=== PATIENT | female | born 1995 | race Caucasian/White ===

== ENCOUNTER 2018-02-24 12:46 | Inpatient (IN) | payer MEDICAID ==
[2018-02-24] MEDS ORDERED: fentaNYL 100 MCG/2 ML SDV IVPUSH PRN (13:22)
[2018-02-24] MEDS ORDERED: Ondansetron 4 MG/2 ML SDV IV PRN (13:22)
[2018-02-24] MEDS ORDERED: Acetaminophen 325 MG Tab PO PRN (13:22)
[2018-02-24] MEDS ORDERED: Sodium Chloride 0.9% 10 ML Syringe FLUSH PRN (13:22)
[2018-02-24] MEDS ORDERED: Calcium Carbonate 500 MG Tab.Chew PO PRN (13:22)
[2018-02-24] MEDS ORDERED: ePHEDrine 50 MG/ML SDV IVPUSH ONE (13:27)
[2018-02-24] MEDS ORDERED: Lactated Ringers 1,000 ML IV ONE (13:27)
[2018-02-24] MEDS ORDERED: ePHEDrine 50 MG/ML SDV ONE (15:34)
[2018-02-24] MEDS ORDERED: Lactated Ringers 1,000 ML IV SCH (16:15)
--- NOTE | 2018-02-24 16:47 | ANES ---
DATE OF SERVICE: 02/24/2018 Edna is a 22-year-old female patient of Darling Alarcon. INDICATION: Edna is on our OB unit. I was requested today to consult her for labor epidural. Upon arrival, I discussed with her, her history, as well as reviewed her lab work and found no contraindication to epidural placement. I discussed with her risks and benefits of the procedure. She was okay to proceed and consent was received. TECHNIQUE: I had her seated at the edge of the bed. Betadine prep x3 to lumbar region. Sterile drape was placed. 1% lidocaine skin wheal as well as deep at the L3-L4 region. Due to positioning, I was unable to access loss of resistance, with frequent repositioning, and I continued that inability at the L3-4. I then proceeded to locate L4-5. 1% lidocaine skin wheal as well as deep, 17-gauge Tuohy was placed to loss of resistance. Negative CSF, negative heme, and negative paresthesia. I then inserted a catheter to 14 cm. Needle was removed. The drape was removed. Catheter was then secured to her back. Test dose was given, 3 mL of 1.5% lidocaine with 1:200,000 epinephrine. Negative sequelae to that. The catheter was then secured to her back, and I gave her a loading dose of 2 mL of 0.2% ropivacaine and began an infusion of that same 12 mL an hour. She tolerated the procedure quite well. Please refer to nurse's notes for vital signs and neuro status, which remained unchanged and within normal limits. She did start to receive some tingling and numbness in her feet prior to completion of the procedure. Again, she tolerated the procedure quite well. I reported her off to the nurse. Thank you for the consultation. Justino Weems CRNA /[id number]
[2018-02-24] MEDS ORDERED: Ropivacaine HCl/PF 200 ML ONE (16:48)
--- NOTE | 2018-02-24 17:22 | PCM.LDHP ---
L&D History of Present Illness - General Date of Service: 02/24/18 Admit Problem/Dx: Patient Status Order with Admit Dx/Problem 02/24/18 13:23 Patient Status [ADT] Routine Admission Diagnosis/Problem Admission Diagnosis/Problem - Related Data Allergies/Adverse Reactions: Allergies Allergy/AdvReac Type Severity Reaction Status Date / Time No Known Allergies Allergy Verified 08/11/15 10:51 Home Medications: Home Meds #103/Iron Fumarate/Fa [ ] 1 tab PO DAILY 08/11/15 [ History] Azithromycin [Zithromax] 250 mg PO DAILY 02/18/18 [History] FLUoxetine HCl [Prozac] 20 mg PO DAILY 02/18/18 [History] hydrOXYzine Pamoate [Vistaril] 50 - 100 mg PO BEDTIME 7 Days #14 cap 02/19/18 [ Rx] Past Medical History Respiratory History: Reports: Asthma [employer] History: Reports: , Other (See Below) Other OB/BYN History: abnormal pap in 2017 Musculoskeletal History: Reports: Other (See Below) Other Musculoskeletal History: arthritis brought brought by an allergic reaction. resolved after reaction cleared. Psychiatric History: Reports: Anxiety, Depression Endocrine/Metabolic History: Reports: Obesity/BMI 30+ Hematologic History: Reports: Anemia, Iron Deficiency Dermatologic History: Reports: Eczema - Infectious Disease History Infectious Disease History: Reports: Chicken Pox - Past Surgical History Endocrine Surgical History: Reports: None Social & Family History - Family History Family Medical History: Noncontributory HEENT: Reports: Impaired Vision Cardiac: Reports: Hypertension Respiratory: Reports: Asthma GI: Reports: Cholelithiasis, Pancreatitis, Other (See Below) Other GI Family History: motherhas stomach lining problems OBGYN: Reports: Neurological: Reports: Alzheimers Disease, Dementia Psychiatric: Reports: Bipolar, Depression, Schizophrenia, Suicide Attempt Hematologic: Reports: Anemia Dermatologic: Reports: Eczema Oncologic: Reports: Ovarian - Tobacco Use Smoking Status *Q: Never Smoker Second Hand Smoke Exposure: No - Caffeine Use Caffeine Use: Reports: Soda, Tea Other Caffeine Use: 1 ccup per day - Recreational Drug Use Recreational Drug Use: No H&P Review of Systems - Review of Systems: Review Of Systems: See Below General: Reports: No Symptoms HEENT: Reports: No Symptoms Pulmonary: Reports: No Symptoms Cardiovascular: Reports: No Symptoms Gastrointestinal: Reports: No Symptoms Genitourinary: Reports: No Symptoms Musculoskeletal: Reports: No Symptoms Skin: Reports: No Symptoms Psychiatric: Reports: No Symptoms Neurological: Reports: No Symptoms Hematologic/Lymphatic: Reports: No Symptoms Immunologic: Reports: No Symptoms L&D Exam - Exam Exam: See Below - Vital Signs Weight: 117.48 kg - OB Specific Contraction Duration (sec): 40-90 Contraction Frequency (min): 4-7 Contraction Intensity: Mild to Moderate Movement: Active Heart Tones: Present Heart Rate (FHR) Variability: Moderate (6-25 bmp) Presentation: Vertex - Allen Score Allen Score Cervix Position: Anterior Allen Score Consistency: Soft Allen Score Effacement: 51-70% Allen Score Dilation: 3-4 cm Allen Score 's Station: -2 Allen Score Total: 9 - Exam General: Alert, Oriented HEENT: PERRLA, Conjunctiva Clear, EACs Clear, EOMI, Hearing Intact, Mucosa Moist & [place], Nares Patent, Normal Nasal Septum, Posterior Pharynx Clear, TMs Clear Neck: Supple, Trachea Midline Lungs: Clear to Auscultation, Normal Respiratory Effort Cardiovascular: Regular Rate, Regular Rhythm GI/Abdominal Exam: Normal Bowel Sounds, Soft, Non-Tender, No Organomegaly, No Distention, No Abnormal Bruit, No Mass, Pelvis Stable Rectal Exam: Normal Exam, Normal Rectal Tone Genitourinary: Normal external exam, Normal bimanual exam, Normal speculum exam Back Exam: Normal Inspection, Full Range of Motion Extremities: Normal Inspection, Normal Range of Motion, Non-Tender, No Pedal Edema, Normal Capillary Refill Skin: Warm, Dry, Intact Neurological: Cranial Nerves Intact, Reflexes Equal Bilateral Psychiatric: Alert, Normal Affect, Normal Mood - Patient Data Lab Results Last 24 hrs: Laboratory Results - last 24 hr 02/24/18 02/24/18 02/24/18 Range/Units 12:53 12:53 13:19 WBC (4.5-11.0) K/uL RBC (3.30-5.50) M/uL Hgb (12.0-15.0) g/dL Hct (36.0-48.0) % MCV (80-98) fL MCH (27-31) pg MCHC (32-36) % Plt Count (150-400) K/uL Neut % (Auto) (36-66) % Lymph % (Auto) (24-44) % [place] % (Auto) (2-6) % Eos % (Auto) (2-4) % Baso % (Auto) (0-1) % Urine Color Yellow Urine Appearance Cloudy Urine pH 8.0 (4.5-8.0) Ur Specific [place] 1.015 (1.008-1.030) Urine Protein Negative (NEGATIVE) mg/dL Urine Glucose (UA) Normal (NEGATIVE) mg/dL Urine Ketones Negative (NEGATIVE) mg/dL Urine Occult Blood Large (NEGATIVE) Urine Nitrite Negative (NEGATIVE) Urine Bilirubin Negative (NEGATIVE) Urine Urobilinogen Normal (NORMAL) mg/dL Ur Leukocyte Esterase Large (NEGATIVE) Urine RBC 20-30 H (0-5) Urine WBC Semi-packed H (0-5) Ur Epithelial Cells Many Amorphous Sediment Not seen Urine Bacteria Moderate Urine Mucus Few Membrane Rupture Positive H (NEGATIVE) Urine Opiates Screen Negative (NEGATIVE) Ur Oxycodone Screen Negative (NEGATIVE) Urine Methadone Screen Negative (NEGATIVE) Ur Propoxyphene Screen Negative (NEGATIVE) Ur Barbiturates Screen Negative (NEGATIVE) Ur Tricyclics Screen Negative (NEGATIVE) Ur Phencyclidine Scrn Negative (NEGATIVE) Ur Amphetamine Screen Negative (NEGATIVE) U Methamphetamines Scrn Negative (NEGATIVE) Urine MDMA Screen Negative (NEGATIVE) U Benzodiazepines Scrn Negative (NEGATIVE) U Cocaine Metab Screen Negative (NEGATIVE) U Marijuana (THC) Screen Negative (NEGATIVE) 02/24/18 02/24/18 Range/Units 13:22 16:25 WBC 8.7 (4.5-11.0) K/uL RBC 3.74 (3.30-5.50) M/uL Hgb 10.3 L D (12.0-15.0) g/dL Hct 31.3 L (36.0-48.0) % MCV 84 (80-98) fL MCH 28 (27-31) pg MCHC 33 (32-36) % Plt Count 264 (150-400) K/uL Neut % (Auto) 69 H (36-66) % Lymph % (Auto) 22 L (24-44) % [place] % (Auto) 8 H (2-6) % Eos % (Auto) 1 L (2-4) % Baso % (Auto) 0 (0-1) % Urine Color Yellow Urine Appearance Clear Urine pH 8.0 (4.5-8.0) Ur Specific [place] 1.010 (1.008-1.030) Urine Protein Negative (NEGATIVE) mg/dL Urine Glucose (UA) Normal (NEGATIVE) mg/dL Urine Ketones Negative (NEGATIVE) mg/dL Urine Occult Blood Negative (NEGATIVE) Urine Nitrite Negative (NEGATIVE) Urine Bilirubin Negative (NEGATIVE) Urine Urobilinogen Normal (NORMAL) mg/dL Ur Leukocyte Esterase Negative (NEGATIVE) Urine RBC 0-5 (0-5) Urine WBC 0-5 (0-5) Ur Epithelial Cells Moderate Amorphous Sediment Not seen Urine Bacteria Not seen Urine Mucus Not seen Membrane Rupture (NEGATIVE) Urine Opiates Screen (NEGATIVE) Ur Oxycodone Screen (NEGATIVE) Urine Methadone Screen (NEGATIVE) Ur Propoxyphene Screen (NEGATIVE) Ur Barbiturates Screen (NEGATIVE) Ur Tricyclics Screen (NEGATIVE) Ur Phencyclidine Scrn (NEGATIVE) Ur Amphetamine Screen (NEGATIVE) U Methamphetamines Scrn (NEGATIVE) Urine MDMA Screen (NEGATIVE) U Benzodiazepines Scrn (NEGATIVE) U Cocaine Metab Screen (NEGATIVE) U Marijuana (THC) Screen (NEGATIVE) Result Diagrams: 02/24/18 13:22 - Problem List (1) SNOMED Code(s): 33247599 ICD Code: Z34.90 - ENCNTR FOR SUPRVSN OF NORMAL , UNSP, UNSP TRIMESTER Status: Acute Current Visit: Yes Qualifiers: Weeks of gestation: 38 weeks Qualified Code(s): Z3A.38 - 38 weeks gestation of (2) Spontaneous rupture of amniotic membranes SNOMED Code(s): 561931697 ICD Code: LSH2060 - Status: Acute Current Visit: Yes (3) Active labor at term SNOMED Code(s): 70663989 ICD Code: XDI0478 - Status: Acute Current Visit: Yes Problem List Initiated/Reviewed/Updated: Yes Orders Last 24hrs: Active Orders 24 hr Category Date Time Status Patient Status [ADT] Routine ADT 02/24/18 13:23 Active Ambulate [RC] PER UNIT ROUTINE Care 02/24/18 13:22 Active Communication Order [RC] ASDIRECTED Care 02/24/18 13:23 Active Heart Tones [RC] PER UNIT ROUTINE Care 02/24/18 13:23 Active Non Stress Test [RC] Click to Edit Care 02/24/18 13:23 Active Insert Urinary Catheter [OM.PC] ASDIRECTED Care 02/24/18 13:30 Ordered Local Anesthetic Infusion Pump [RC] ASDIRECTED Care 02/24/18 13:27 Active Notify Provider Vital Signs [RC] PRN Care 02/24/18 13:22 Active Notify Provider [RC] PRN Care 02/24/18 13:23 Active PCEA Epidural [RC] ASDIRECTED Care 02/24/18 13:27 Active PCEA Epidural [RC] ASDIRECTED Care 02/24/18 13:27 Active Up ad Ne [RC] ASDIRECTED Care 02/24/18 13:22 Active Urinary Catheter Assessment [RC] ASDIRECTED Care 02/24/18 13:27 Active Verify Patient Consent Obtain [RC] ASDIRECTED Care 02/24/18 13:27 Active Vital Signs [RC] PER UNIT ROUTINE Care 02/24/18 13:23 Active Regular Diet [DIET] Diet 02/24/18 Lunch Active AMNISURE RUPTURE MEMBRAN [BF] Routine Lab 02/24/18 13:19 Ordered DRUG SCREEN, URINE [URCHEM] Routine Lab 02/24/18 12:53 Ordered UA W/MICROSCOPIC [URIN] Routine Lab 02/24/18 12:53 Ordered UA W/MICROSCOPIC [URIN] Routine Lab 02/24/18 16:25 Ordered Acetaminophen [Tylenol] Med 02/24/18 13:22 Active 650 mg PO Q4H PRN Calcium Carbonate [Tums] Med 02/24/18 13:22 Active 1,000 mg PO Q2H PRN Lactated Ringers [Ringers, Lactated] 1,000 ml Med 02/24/18 16:15 Active IV ASDIRECTED Ondansetron [Zofran] Med 02/24/18 13:22 Active 4 mg IV Q4H PRN Oxytocin/Normal Saline [Pitocin in NS 20 Units/1,000 ML Med 02/24/18 13:30 Active ] 20 unit in 1,000 ml IV TITRATE Sodium Chloride 0.9% [Saline Flush] Med 02/24/18 13:22 Active 10 ml FLUSH ASDIRECTED PRN fentaNYL [Sublimaze] Med 02/24/18 13:22 Active 100 mcg IVPUSH Q1H PRN DVT/VTE Prophylaxis Reflex [OM.PC] Routine Oth 02/24/18 13:22 Ordered Epidural Catheter Management [OM.PC] Urgent Oth 02/24/18 13:27 Ordered Saline Lock Insert [OM.PC] Routine Oth 02/24/18 13:23 Ordered Resuscitation Status Routine Resus Stat 02/24/18 13:22 Ordered Medication Orders Acetaminophen (Tylenol) 650 mg PO Q4H PRN PRN Reason: Pain (Mild 1-3) and fever Calcium Carbonate/Glycine (Tums) 1,000 mg PO Q2H PRN PRN Reason: Indigestion Fentanyl (Sublimaze) 100 mcg IVPUSH Q1H PRN PRN Reason: Pain (moderate 4-6) Oxytocin/Sodium Chloride (Pitocin In Ns 20 Units/1,000 Ml) 20 unit in 1,000 mls @ 6 mls/hr IV TITRATE CYNTHIA; Protocol Last Titration: 02/24/18 17:12 Dose: 10 munits/min, 30 mls/hr Titration: 02/24/18 16:13 Dose: 8 munits/min, 24 mls/hr Titration: 02/24/18 15:43 Dose: 6 munits/min, 18 mls/hr Titration: 02/24/18 15:04 Dose: 4 munits/min, 12 mls/hr Admin: 02/24/18 14:11 Dose: 2 munits/min, 6 mls/hr Lactated Ringer's (Ringers, Lactated) 1,000 mls @ 125 mls/hr IV ASDIRECTED CYNTHIA Ondansetron HCl (Zofran) 4 mg IV Q4H PRN PRN Reason: Nausea/Vomiting Sodium Chloride (Saline Flush) 10 ml FLUSH ASDIRECTED PRN PRN Reason: Keep Vein Open Assessment/Plan Comment:: 02/24/2018 22 yo at 38 4/7 gestational weeks here with SROM at home around 1130 SVE-4/70/-2 Amnisure positive FHTs category one Contractions irregular Plan- Admit to labor and delivery Monitor for active labor Start Pitocin per protocol Monitor FHTs Up and about as patient desires Pain management per patient request Plan and anticipate a vaginal delivery
--- NOTE | 2018-02-24 17:24 | PCM.PNLD ---
Labor Progress Note - VS & Meds Active Medications: Current Medications Acetaminophen (Tylenol) 650 mg PO Q4H PRN PRN Reason: Pain (Mild 1-3) and fever Calcium Carbonate/Glycine (Tums) 1,000 mg PO Q2H PRN PRN Reason: Indigestion Fentanyl (Sublimaze) 100 mcg IVPUSH Q1H PRN PRN Reason: Pain (moderate 4-6) Oxytocin/Sodium Chloride (Pitocin In Ns 20 Units/1,000 Ml) 20 unit in 1,000 mls @ 6 mls/hr IV TITRATE CYNTHIA; Protocol Last Titration: 02/24/18 17:12 Dose: 10 munits/min, 30 mls/hr Lactated Ringer's (Ringers, Lactated) 1,000 mls @ 125 mls/hr IV ASDIRECTED CYNTHIA Ondansetron HCl (Zofran) 4 mg IV Q4H PRN PRN Reason: Nausea/Vomiting Sodium Chloride (Saline Flush) 10 ml FLUSH ASDIRECTED PRN PRN Reason: Keep Vein Open Discontinued Medications Ephedrine Sulfate (Ephedrine Sulfate) 5 mg IVPUSH ONETIME ONE Stop: 02/24/18 13:28 Ephedrine Sulfate (Ephedrine Sulfate) Confirm Administered Dose 50 mg .ROUTE .STK-MED ONE Stop: 02/24/18 15:35 Last Admin: 02/24/18 16:01 Dose: Not Given Lactated Ringer's (Ringers, Lactated) 1,000 mls @ 999 mls/hr IV ONETIME ONE Stop: 02/24/18 14:27 Last Infusion: 02/24/18 14:45 Dose: 999 mls/hr Ropivacaine (Naropin 0.2%) Confirm Administered Dose 200 mls @ as directed .ROUTE .STK-MED ONE Stop: 02/24/18 16:49 - Uterine Contractions Uterine Monitoring Mode: External [place] Contraction Frequency (min): 4-7 Contraction Duration (sec): 40-90 Contraction Intensity: Mild to Moderate Uterine Resting Tone: Soft - Monitoring Heart Rate (FHR) Variability: Moderate (6-25 bmp) - Vaginal Exam Dilation (cm): 4-5 Effacement (Percent): 80 Station: 0 Cervical Position: Anterior Sterile Vaginal Exam Performed By: Darling Alarcon - Labor Progress (Free Text) Labor Progress: 02/24/2018 Patient comfortable with epidural SVE-4-5/80/0--1 Forbag felt-AROM clear fluid FHTs category one Contractions more regular Plan- Continue to monitor labor Continue to monitor FHTs Continue Pitocin per protocol Epidural for pain management Plan and anticipate a vaginal delivery
[2018-02-24] MEDS ORDERED: Naloxone 0.4 MG/ML SDV IVPUSH PRN (18:47)
[2018-02-24] MEDS ORDERED: Ropivacaine 100 ML EPIDUR SCH (18:47)
[2018-02-24] MEDS ORDERED: ePHEDrine 50 MG/ML SDV IV PRN (18:47)
[2018-02-24] MEDS ORDERED: diphenhydrAMINE 50 MG/ML SDV IVPUSH PRN (18:47)
--- NOTE | 2018-02-24 19:12 | PCM.PNLD ---
Labor Progress Note - VS & Meds Vital Signs: Last Vital Signs Temp 36.4 C 02/24/18 16:05 Pulse 89 02/24/18 16:05 Resp 16 02/24/18 16:05 BP 108/79 02/24/18 16:05 Pulse Ox 98 02/24/18 16:05 Active Medications: Current Medications Acetaminophen (Tylenol) 650 mg PO Q4H PRN PRN Reason: Pain (Mild 1-3) and fever Calcium Carbonate/Glycine (Tums) 1,000 mg PO Q2H PRN PRN Reason: Indigestion Diphenhydramine HCl (Benadryl) 25 mg IVPUSH Q6H PRN PRN Reason: ITCHING Ephedrine Sulfate (Ephedrine Sulfate) 5 - 10 mg IV ASDIRECTED PRN PRN Reason: Systolic BP less than 100 Fentanyl (Sublimaze) 100 mcg IVPUSH Q1H PRN PRN Reason: Pain (moderate 4-6) Oxytocin/Sodium Chloride (Pitocin In Ns 20 Units/1,000 Ml) 20 unit in 1,000 mls @ 6 mls/hr IV TITRATE CYNTHIA; Protocol Last Titration: 02/24/18 18:02 Dose: 8 munits/min, 24 mls/hr Lactated Ringer's (Ringers, Lactated) 1,000 mls @ 125 mls/hr IV ASDIRECTED CYNTHIA Ropivacaine (Naropin 0.2%) 100 mls @ 0 mls/hr EPIDUR ASDIRECTED CYNTHIA; Protocol Naloxone HCl (Narcan) 0.1 mg IVPUSH Q5M PRN PRN Reason: IF RESP RATE LESS THAN 6 Ondansetron HCl (Zofran) 4 mg IV Q4H PRN PRN Reason: Nausea/Vomiting Sodium Chloride (Saline Flush) 10 ml FLUSH ASDIRECTED PRN PRN Reason: Keep Vein Open Discontinued Medications Ephedrine Sulfate (Ephedrine Sulfate) 5 mg IVPUSH ONETIME ONE Stop: 02/24/18 13:28 Ephedrine Sulfate (Ephedrine Sulfate) Confirm Administered Dose 50 mg .ROUTE .STK-MED ONE Stop: 02/24/18 15:35 Last Admin: 02/24/18 16:01 Dose: Not Given Lactated Ringer's (Ringers, Lactated) 1,000 mls @ 999 mls/hr IV ONETIME ONE Stop: 02/24/18 14:27 Last Infusion: 02/24/18 14:45 Dose: 999 mls/hr Ropivacaine (Naropin 0.2%) Confirm Administered Dose 200 mls @ as directed .ROUTE .STK-MED ONE Stop: 02/24/18 16:49 - Uterine Contractions Uterine Monitoring Mode: External [place] Contraction Frequency (min): 2-4 Contraction Duration (sec): 40-60 Contraction Intensity: Moderate Uterine Resting Tone: Hard - Monitoring Heart Rate (FHR) Variability: Moderate (6-25 bmp) - Vaginal Exam Dilation (cm): 10 Effacement (Percent): 90 Station: 0 Cervical Position: Anterior Sterile Vaginal Exam Performed By: Darling Alarcon - Labor Progress (Free Text) Labor Progress: 02/24/2018 Patient progressing nicely SVE-10/100/0 FHTs occasional variable/early Contractions regular Pain controlled with an epidural Plan- Labor down due to laceration at last delivery Monitor FHTs Plan and anticipate for a vaginal delivery
[2018-02-24] MEDS ORDERED: Lanolin 100% Cream 40 GM Tube TOP PRN (19:58)
[2018-02-24] MEDS ORDERED: Acetaminophen 325 MG Tab, 50 Tab Bulk Bottle PO PRN (19:58)
[2018-02-24] MEDS ORDERED: Docusate Sodium 100 MG Cap PO PRN (19:58)
[2018-02-24] MEDS ORDERED: Ibuprofen 200 MG Tab, 24 Tab Bulk Bottle PO PRN (19:58)
[2018-02-24] MEDS ORDERED: Witch Hazel Medicated Pads 100/Jar TOP PRN (19:58)
--- NOTE | 2018-02-24 20:13 | PCM.DEL ---
L & D Note - General Info Date of Service: 02/24/18 Mother's Due Date: 03/06/18 - Delivery Note Labor: Augmented by Oxytocin Delivery Outcome: Livebirth Infant Delivery Method: Spontaneous Vaginal Delivery-Single Delivery Mode: Spontaneous Presentation: Vertex Nuchal Cord: None Anesthesia Type: Epidural Amniotic Fluid Description: Clear Episiotomy Type: None Laceration: None Placenta: Intact, Spontaneous Cord: 3 Vessels Estimated Blood Loss: 250 : Bulb Syringe, Stimulated, Warmed, [place] Used Score 1 min: 9 Score 5 min: 9 Second Stage Interventions: Reports: Encouragement Given, Pushing Effectively Delivery Comments (Free Text/Narrative):: 02/24/2018 22 yo at 38 4/7 gestational weeks delivered a viable male infant at 1932 on 02/24/2018 without complications in [place] position with compound left arm. APGARS-9/9, weight 7lbs 10oz, length-19.9 inches, infant placed on mothers abdomen, delayed cord clamping done, cord double clamped, father of cut the cord, then bulb suctioned, stimulated, dried, and warmed before pinking in color and crying vigorously. Three vessel cord, did have cord around arm near axilla times one at delivery. Placenta spontaneous and intact. No lacerations noted of vagina, cervix, labia, rectum, or perineum. EBL-250ml. Mother stable in labor and delivery room and stable skin to skin. - General Info Date of Service: 02/24/18 Functional Status: Reports: Pain Controlled - Review of Systems General: Reports: No Symptoms HEENT: Reports: No Symptoms Pulmonary: Reports: No Symptoms Cardiovascular: Reports: No Symptoms Gastrointestinal: Reports: No Symptoms Genitourinary: Reports: No Symptoms Musculoskeletal: Reports: No Symptoms Skin: Reports: No Symptoms Neurological: Reports: No Symptoms Psychiatric: Reports: No Symptoms - Patient Data Vitals - Most Recent: Last Vital Signs Temp 36.4 C 02/24/18 16:05 Pulse 72 02/24/18 18:30 Resp 16 02/24/18 18:30 BP 125/65 02/24/18 18:30 Pulse Ox 96 02/24/18 18:30 Weight - Most Recent: 117.48 kg Lab Results Last 24 Hours: Laboratory Results - last 24 hr 02/24/18 02/24/1818 Range/Units 12:53 12:53 13:19 WBC (4.5-11.0) K/uL RBC (3.30-5.50) M/uL Hgb (12.0-15.0) g/dL Hct (36.0-48.0) % MCV (80-98) fL MCH (27-31) pg MCHC (32-36) % Plt Count (150-400) K/uL Neut % (Auto) (36-66) % Lymph % (Auto) (24-44) % [place] % (Auto) (2-6) % Eos % (Auto) (2-4) % Baso % (Auto) (0-1) % Urine Color Yellow Urine Appearance Cloudy Urine pH 8.0 (4.5-8.0) Ur Specific [place] 1.015 (1.008-1.030) Urine Protein Negative (NEGATIVE) mg/dL Urine Glucose (UA) Normal (NEGATIVE) mg/dL Urine Ketones Negative (NEGATIVE) mg/dL Urine Occult Blood Large (NEGATIVE) Urine Nitrite Negative (NEGATIVE) Urine Bilirubin Negative (NEGATIVE) Urine Urobilinogen Normal (NORMAL) mg/dL Ur Leukocyte Esterase Large (NEGATIVE) Urine RBC 20-30 H (0-5) Urine WBC Semi-packed H (0-5) Ur Epithelial Cells Many Amorphous Sediment Not seen Urine Bacteria Moderate Urine Mucus Few Membrane Rupture Positive H (NEGATIVE) Urine Opiates Screen Negative (NEGATIVE) Ur Oxycodone Screen Negative (NEGATIVE) Urine Methadone Screen Negative (NEGATIVE) Ur Propoxyphene Screen Negative (NEGATIVE) Ur Barbiturates Screen Negative (NEGATIVE) Ur Tricyclics Screen Negative (NEGATIVE) Ur Phencyclidine Scrn Negative (NEGATIVE) Ur Amphetamine Screen Negative (NEGATIVE) U Methamphetamines Scrn Negative (NEGATIVE) Urine MDMA Screen Negative (NEGATIVE) U Benzodiazepines Scrn Negative (NEGATIVE) U Cocaine Metab Screen Negative (NEGATIVE) U Marijuana (THC) Screen Negative (NEGATIVE) 02/24/18 02/24/18 Range/Units 13:22 16:25 WBC 8.7 (4.5-11.0) K/uL RBC 3.74 (3.30-5.50) M/uL Hgb 10.3 L D (12.0-15.0) g/dL Hct 31.3 L (36.0-48.0) % MCV 84 (80-98) fL MCH 28 (27-31) pg MCHC 33 (32-36) % Plt Count 264 (150-400) K/uL Neut % (Auto) 69 H (36-66) % Lymph % (Auto) 22 L (24-44) % [place] % (Auto) 8 H (2-6) % Eos % (Auto) 1 L (2-4) % Baso % (Auto) 0 (0-1) % Urine Color Yellow Urine Appearance Clear Urine pH 8.0 (4.5-8.0) Ur Specific [place] 1.010 (1.008-1.030) Urine Protein Negative (NEGATIVE) mg/dL Urine Glucose (UA) Normal (NEGATIVE) mg/dL Urine Ketones Negative (NEGATIVE) mg/dL Urine Occult Blood Negative (NEGATIVE) Urine Nitrite Negative (NEGATIVE) Urine Bilirubin Negative (NEGATIVE) Urine Urobilinogen Normal (NORMAL) mg/dL Ur Leukocyte Esterase Negative (NEGATIVE) Urine RBC 0-5 (0-5) Urine WBC 0-5 (0-5) Ur Epithelial Cells Moderate Amorphous Sediment Not seen Urine Bacteria Not seen Urine Mucus Not seen Membrane Rupture (NEGATIVE) Urine Opiates Screen (NEGATIVE) Ur Oxycodone Screen (NEGATIVE) Urine Methadone Screen (NEGATIVE) Ur Propoxyphene Screen (NEGATIVE) Ur Barbiturates Screen (NEGATIVE) Ur Tricyclics Screen (NEGATIVE) Ur Phencyclidine Scrn (NEGATIVE) Ur Amphetamine Screen (NEGATIVE) U Methamphetamines Scrn (NEGATIVE) Urine MDMA Screen (NEGATIVE) U Benzodiazepines Scrn (NEGATIVE) U Cocaine Metab Screen (NEGATIVE) U Marijuana (THC) Screen (NEGATIVE) Med Orders - Current: Current Medications Acetaminophen (Tylenol) 650 mg PO Q4H PRN PRN Reason: Pain (Mild 1-3) and fever Acetaminophen (Tylenol Bulk Bottle) 325 mg PO Q4H PRN PRN Reason: Pain Calcium Carbonate/Glycine (Tums) 1,000 mg PO Q2H PRN PRN Reason: Indigestion Diphenhydramine HCl (Benadryl) 25 mg IVPUSH Q6H PRN PRN Reason: ITCHING Docusate Sodium (Colace) 100 mg PO BID PRN PRN Reason: Constipation Emollient Ointment (Lansinoh Hpa) 1 gm TOP ASDIRECTED PRN PRN Reason: Sore Nipples Ephedrine Sulfate (Ephedrine Sulfate) 5 - 10 mg IV ASDIRECTED PRN PRN Reason: Systolic BP less than 100 Fentanyl (Sublimaze) 100 mcg IVPUSH Q1H PRN PRN Reason: Pain (moderate 4-6) Oxytocin/Sodium Chloride (Pitocin In Ns 20 Units/1,000 Ml) 20 unit in 1,000 mls @ 6 mls/hr IV TITRATE CYNTHIA; Protocol Last Titration: 02/24/18 18:02 Dose: 8 munits/min, 24 mls/hr Lactated Ringer's (Ringers, Lactated) 1,000 mls @ 125 mls/hr IV ASDIRECTED CYNTHIA Ropivacaine (Naropin 0.2%) 100 mls @ 0 mls/hr EPIDUR ASDIRECTED CYNTHIA; Protocol Ibuprofen (Motrin Bulk Bottle) 600 mg PO Q6H PRN PRN Reason: Pain Naloxone HCl (Narcan) 0.1 mg IVPUSH Q5M PRN PRN Reason: IF RESP RATE LESS THAN 6 Ondansetron HCl (Zofran) 4 mg IV Q4H PRN PRN Reason: Nausea/Vomiting Sodium Chloride (Saline Flush) 10 ml FLUSH ASDIRECTED PRN PRN Reason: Keep Vein Open Witch Tonya (Tucks) 1 pad TOP ASDIRECTED PRN PRN Reason: Hemorrhoids Discontinued Medications Ephedrine Sulfate (Ephedrine Sulfate) 5 mg IVPUSH ONETIME ONE Stop: 02/24/18 13:28 Ephedrine Sulfate (Ephedrine Sulfate) Confirm Administered Dose 50 mg .ROUTE .STK-MED ONE Stop: 02/24/18 15:35 Last Admin: 02/24/18 16:01 Dose: Not Given Lactated Ringer's (Ringers, Lactated) 1,000 mls @ 999 mls/hr IV ONETIME ONE Stop: 02/24/18 14:27 Last Infusion: 02/24/18 14:45 Dose: 999 mls/hr Ropivacaine (Naropin 0.2%) Confirm Administered Dose 200 mls @ as directed .ROUTE .STK-MED ONE Stop: 02/24/18 16:49 Oxytocin/Sodium Chloride (Pitocin In Ns 20 Units/1,000 Ml) 20 unit in 1,000 mls @ 2,997 mls/hr IV ONETIME ONE; Protocol Stop: 02/24/18 19:32 - Exam General: Alert, Oriented HEENT: Pupils Equal, Pupils Reactive, EOMI, Mucous Membr. Moist/[place] Neck: Supple Lungs: Clear to Auscultation, Normal Respiratory Effort Cardiovascular: Regular Rate, Regular Rhythm GI/Abdominal Exam: Normal Bowel Sounds, Soft, Non-Tender, No Organomegaly, No Distention, No Abnormal Bruit, No Mass, Pelvis Stable (Female) Exam: Normal External Exam, Normal Speculum Exam, Normal Bimanual Exam, Enlarged Uterus, Vaginal Bleeding Back Exam: Normal Inspection, Full Range of Motion Extremities: Normal Inspection, Normal Range of Motion, Non-Tender, No Pedal Edema, Normal Capillary Refill Skin: Warm, Dry, Intact Neurological: No New Focal Deficit Psy/Mental Status: Alert, Normal Affect, Normal Mood - Problem List & Annotations (1) SNOMED Code(s): 62915450 Code(s): Z34.90 - ENCNTR FOR SUPRVSN OF NORMAL , UNSP, UNSP TRIMESTER Status: Acute Current Visit: Yes Qualifiers: Weeks of gestation: 38 weeks Qualified Code(s): Z3A.38 - 38 weeks gestation of (2) Spontaneous rupture of amniotic membranes SNOMED Code(s): 151449441 Code(s): GGY2862 - Status: Acute Current Visit: Yes (3) Active labor at term SNOMED Code(s): 49252701 Code(s): UJK8444 - Status: Acute Current Visit: Yes - Problem List Review Problem List Initiated/Reviewed/Updated: Yes - My Orders Last 24 Hours: My Active Orders 02/24/18 12:53 DRUG SCREEN, URINE [URCHEM] Routine UA W/MICROSCOPIC [URIN] Routine 02/24/18 13:19 AMNISURE RUPTURE MEMBRAN [BF] Routine 02/24/18 13:22 Ambulate [RC] PER UNIT ROUTINE Notify Provider Vital Signs [RC] PRN Up ad Ne [RC] ASDIRECTED Acetaminophen [Tylenol] 650 mg PO Q4H PRN Calcium Carbonate [Tums] 1,000 mg PO Q2H PRN Ondansetron [Zofran] 4 mg IV Q4H PRN Sodium Chloride 0.9% [Saline Flush] 10 ml FLUSH ASDIRECTED PRN fentaNYL [Sublimaze] 100 mcg IVPUSH Q1H PRN DVT/VTE Prophylaxis Reflex [OM.PC] Routine Resuscitation Status Routine 02/24/18 13:23 Patient Status [ADT] Routine Communication Order [RC] ASDIRECTED Heart Tones [RC] PER UNIT ROUTINE Non Stress Test [RC] Click to Edit Notify Provider [RC] PRN Vital Signs [RC] PER UNIT ROUTINE Saline Lock Insert [OM.PC] Routine 02/24/18 13:27 Local Anesthetic Infusion Pump [RC] ASDIRECTED PCEA Epidural [RC] ASDIRECTED PCEA Epidural [RC] ASDIRECTED Urinary Catheter Assessment [RC] ASDIRECTED Verify Patient Consent Obtain [RC] ASDIRECTED Epidural Catheter Management [OM.PC] Urgent 02/24/18 13:30 Insert Urinary Catheter [OM.PC] ASDIRECTED Oxytocin/Normal Saline [Pitocin in NS 20 Units/1,000 ML] 20 unit in 1,000 ml IV TITRATE 02/24/18 16:15 Lactated Ringers [Ringers, Lactated] 1,000 ml IV ASDIRECTED 02/24/18 16:25 UA W/MICROSCOPIC [URIN] Routine 02/24/18 18:47 Naloxone [Narcan] 0.1 mg IVPUSH Q5M PRN Ropivacaine [Naropin 0.2%] 100 ml EPIDUR ASDIRECTED diphenhydrAMINE [Benadryl] 25 mg IVPUSH Q6H PRN ePHEDrine [ePHEDrine Sulfate] 5 - 10 mg IV ASDIRECTED PRN 02/24/18 19:58 Patient Status [ADT] Routine Vital Signs [RC] PFP Acetaminophen [Tylenol Bulk Bottle] 325 mg PO Q4H PRN Docusate Sodium [Colace] 100 mg PO BID PRN Ibuprofen [Motrin Bulk Bottle] 600 mg PO Q6H PRN Lanolin [Lansinoh HPA] 1 gm TOP ASDIRECTED PRN Witch Tonya [Tucks] 1 pad TOP ASDIRECTED PRN Assess Lochia [WOMSER] Per Unit Routine Assess Uterine Involution [WOMSER] Per Unit Routine Perineal Care [OM.PC] Per Unit Routine 02/24/18 Lunch Regular Diet [DIET] 02/25/18 06:00 CBC WITH AUTO DIFF [HEME] Routine - Assessment Assessment:: 02/24/2018 22 yo G2 now P2 at 38 4/7 gestational weeks without complications Labs-A positive, GBS negative, RPR nonreactive, Hep B neg, Hep C neg, HIV neg, Rubella [id number] - Plan Plan:: 02/24/2018 22 yo at 38 4/7 gestational weeks here with SROM at home around 1130 SVE-/-2 Amnisure positive FHTs category one Contractions irregular Plan- Admit to labor and delivery Monitor for active labor Start Pitocin per protocol Monitor FHTs Up and about as patient desires Pain management per patient request Plan and anticipate a vaginal delivery 02/24/2018 Routine care Encourage and support Plan discharge in 24-48 hours
[2018-02-25] MEDS ORDERED: Acetaminophen 325 MG Tab, 50 Tab Bulk Bottle PO PRN (07:14)
--- NOTE | 2018-02-25 08:23 | PCM.PNPP ---
- General Info Date of Service: 02/25/18 ( day one) Functional Status: Reports: Pain Controlled - Review of Systems General: Reports: No Symptoms HEENT: Reports: No Symptoms Pulmonary: Reports: No Symptoms Cardiovascular: Reports: No Symptoms Gastrointestinal: Reports: No Symptoms Genitourinary: Reports: No Symptoms Musculoskeletal: Reports: No Symptoms Skin: Reports: No Symptoms Neurological: Reports: No Symptoms Psychiatric: Reports: No Symptoms - General Info Date of Service: 02/25/18 - Patient Data Vital Signs - Most Recent: Last Vital Signs Temp 36.4 C 02/25/18 08:04 Pulse 74 02/25/18 08:04 Resp 16 02/25/18 08:04 BP 125/67 02/25/18 08:04 Pulse Ox 99 02/25/18 08:04 Weight - Most Recent: 117.48 kg I&O - Last 24 Hours: Intake & Output 02/24/18 02/25/18 02/25/18 22:59 06:59 14:59 Output Total 300 Balance -300 Lab Results - Last 24 Hours: Laboratory Results - last 24 hr 02/24/18 02/24/18 02/24/18 Range/Units 12:53 12:53 13:19 WBC (4.5-11.0) K/uL RBC (3.30-5.50) M/uL Hgb (12.0-15.0) g/dL Hct (36.0-48.0) % MCV (80-98) fL MCH (27-31) pg MCHC (32-36) % Plt Count (150-400) K/uL Neut % (Auto) (36-66) % Lymph % (Auto) (24-44) % [place] % (Auto) (2-6) % Eos % (Auto) (2-4) % Baso % (Auto) (0-1) % Urine Color Yellow Urine Appearance Cloudy Urine pH 8.0 (4.5-8.0) Ur Specific [place] 1.015 (1.008-1.030) Urine Protein Negative (NEGATIVE) mg/dL Urine Glucose (UA) Normal (NEGATIVE) mg/dL Urine Ketones Negative (NEGATIVE) mg/dL Urine Occult Blood Large (NEGATIVE) Urine Nitrite Negative (NEGATIVE) Urine Bilirubin Negative (NEGATIVE) Urine Urobilinogen Normal (NORMAL) mg/dL Ur Leukocyte Esterase Large (NEGATIVE) Urine RBC 20-30 H (0-5) Urine WBC Semi-packed H (0-5) Ur Epithelial Cells Many Amorphous Sediment Not seen Urine Bacteria Moderate Urine Mucus Few Membrane Rupture Positive H (NEGATIVE) Urine Opiates Screen Negative (NEGATIVE) Ur Oxycodone Screen Negative (NEGATIVE) Urine Methadone Screen Negative (NEGATIVE) Ur Propoxyphene Screen Negative (NEGATIVE) Ur Barbiturates Screen Negative (NEGATIVE) Ur Tricyclics Screen Negative (NEGATIVE) Ur Phencyclidine Scrn Negative (NEGATIVE) Ur Amphetamine Screen Negative (NEGATIVE) U Methamphetamines Scrn Negative (NEGATIVE) Urine MDMA Screen Negative (NEGATIVE) U Benzodiazepines Scrn Negative (NEGATIVE) U Cocaine Metab Screen Negative (NEGATIVE) U Marijuana (THC) Screen Negative (NEGATIVE) 02/24/18 02/24/18 02/25/18 Range/Units 13:22 16:25 06:00 WBC 8.7 10.1 (4.5-11.0) K/uL RBC 3.74 3.37 (3.30-5.50) M/uL Hgb 10.3 L D 9.4 L (12.0-15.0) g/dL Hct 31.3 L 28.3 L (36.0-48.0) % MCV 84 84 (80-98) fL MCH 28 28 (27-31) pg MCHC 33 33 (32-36) % Plt Count 264 217 (150-400) K/uL Neut % (Auto) 69 H 59 (36-66) % Lymph % (Auto) 22 L 30 (24-44) % [place] % (Auto) 8 H 11 H (2-6) % Eos % (Auto) 1 L 1 L (2-4) % Baso % (Auto) 0 0 (0-1) % Urine Color Yellow Urine Appearance Clear Urine pH 8.0 (4.5-8.0) Ur Specific [place] 1.010 (1.008-1.030) Urine Protein Negative (NEGATIVE) mg/dL Urine Glucose (UA) Normal (NEGATIVE) mg/dL Urine Ketones Negative (NEGATIVE) mg/dL Urine Occult Blood Negative (NEGATIVE) Urine Nitrite Negative (NEGATIVE) Urine Bilirubin Negative (NEGATIVE) Urine Urobilinogen Normal (NORMAL) mg/dL Ur Leukocyte Esterase Negative (NEGATIVE) Urine RBC 0-5 (0-5) Urine WBC 0-5 (0-5) Ur Epithelial Cells Moderate Amorphous Sediment Not seen Urine Bacteria Not seen Urine Mucus Not seen Membrane Rupture (NEGATIVE) Urine Opiates Screen (NEGATIVE) Ur Oxycodone Screen (NEGATIVE) Urine Methadone Screen (NEGATIVE) Ur Propoxyphene Screen (NEGATIVE) Ur Barbiturates Screen (NEGATIVE) Ur Tricyclics Screen (NEGATIVE) Ur Phencyclidine Scrn (NEGATIVE) Ur Amphetamine Screen (NEGATIVE) U Methamphetamines Scrn (NEGATIVE) Urine MDMA Screen (NEGATIVE) U Benzodiazepines Scrn (NEGATIVE) U Cocaine Metab Screen (NEGATIVE) U Marijuana (THC) Screen (NEGATIVE) Med Orders - Current: Current Medications Acetaminophen (Tylenol Bulk Bottle) 325 - 650 mg PO Q4H PRN PRN Reason: Pain Calcium Carbonate/Glycine (Tums) 1,000 mg PO Q2H PRN PRN Reason: Indigestion Diphenhydramine HCl (Benadryl) 25 mg IVPUSH Q6H PRN PRN Reason: ITCHING Docusate Sodium (Colace) 100 mg PO BID PRN PRN Reason: Constipation Emollient Ointment (Lansinoh Hpa) 1 gm TOP ASDIRECTED PRN PRN Reason: Sore Nipples Ephedrine Sulfate (Ephedrine Sulfate) 5 - 10 mg IV ASDIRECTED PRN PRN Reason: Systolic BP less than 100 Oxytocin/Sodium Chloride (Pitocin In Ns 20 Units/1,000 Ml) 20 unit in 1,000 mls @ 6 mls/hr IV TITRATE CYNHTIA; Protocol Last Titration: 02/24/18 18:02 Dose: 8 munits/min, 24 mls/hr Lactated Ringer's (Ringers, Lactated) 1,000 mls @ 125 mls/hr IV ASDIRECTED CYNTHIA Ropivacaine (Naropin 0.2%) 100 mls @ 0 mls/hr EPIDUR ASDIRECTED CYNTHIA; Protocol Ibuprofen (Motrin Bulk Bottle) 600 mg PO Q6H PRN PRN Reason: Pain Naloxone HCl (Narcan) 0.1 mg IVPUSH Q5M PRN PRN Reason: IF RESP RATE LESS THAN 6 Ondansetron HCl (Zofran) 4 mg IV Q4H PRN PRN Reason: Nausea/Vomiting Sodium Chloride (Saline Flush) 10 ml FLUSH ASDIRECTED PRN PRN Reason: Keep Vein Open Witch Tonya (Tucks) 1 pad TOP ASDIRECTED PRN PRN Reason: Hemorrhoids Discontinued Medications Acetaminophen (Tylenol Bulk Bottle) 325 mg PO Q4H PRN PRN Reason: Pain Ephedrine Sulfate (Ephedrine Sulfate) 5 mg IVPUSH ONETIME ONE Stop: 02/24/18 13:28 Last Admin: 02/24/18 22:31 Dose: Not Given Ephedrine Sulfate (Ephedrine Sulfate) Confirm Administered Dose 50 mg .ROUTE .STK-MED ONE Stop: 02/24/18 15:35 Last Admin: 02/24/18 16:01 Dose: Not Given Fentanyl (Sublimaze) 100 mcg IVPUSH Q1H PRN PRN Reason: Pain (moderate 4-6) Lactated Ringer's (Ringers, Lactated) 1,000 mls @ 999 mls/hr IV ONETIME ONE Stop: 02/24/18 14:27 Last Infusion: 02/24/18 14:45 Dose: 999 mls/hr Ropivacaine (Naropin 0.2%) Confirm Administered Dose 200 mls @ as directed .ROUTE .STK-MED ONE Stop: 02/24/18 16:49 Oxytocin/Sodium Chloride (Pitocin In Ns 20 Units/1,000 Ml) 20 unit in 1,000 mls @ 2,997 mls/hr IV ONETIME ONE; Protocol Stop: 02/24/18 19:32 Last Admin: 02/24/18 20:31 Dose: 999 munits/min, 2,997 mls/hr - Interaction Disposition, : at Bedside Interaction: Holding Infant Infant Feeding: Attempted ; Nursed Fair/Poor, Encouraged to Breastfeed Support Person: - Recovery Exam Fundal Tone: Firms with Massage Fundal Level: At Umbilicus Fundal Placement: Midline Lochia Amount: Small Lochia Color: [place]/Red Perineum Description: Intact, Minimal Bruising/Swelling Episiotomy/Laceration: None Bladder Status: Voiding Urinary Elimination: Voided - Exam General: Alert, Oriented HEENT: Pupils Equal Neck: Supple Lungs: Clear to Auscultation, Normal Respiratory Effort Cardiovascular: Regular Rate, Regular Rhythm GI/Abdominal Exam: Normal Bowel Sounds, Soft, Non-Tender, No Organomegaly, No Distention, No Abnormal Bruit, No Mass, Pelvis Stable Extremities: Normal Inspection, Normal Range of Motion, Non-Tender, No Pedal Edema, Normal Capillary Refill Skin: Warm, Dry, Intact Neurological: No New Focal Deficit Psy/Mental Status: Alert, Normal Affect, Normal Mood - Problem List & Annotations (1) SNOMED Code(s): 62557704 Code(s): Z34.90 - ENCNTR FOR SUPRVSN OF NORMAL , UNSP, UNSP TRIMESTER Status: Acute Current Visit: Yes Qualifiers: Weeks of gestation: 38 weeks Qualified Code(s): Z3A.38 - 38 weeks gestation of (2) Spontaneous rupture of amniotic membranes SNOMED Code(s): 398520156 Code(s): BWM6671 - Status: Acute Current Visit: Yes (3) Active labor at term SNOMED Code(s): 93592130 Code(s): FCO8969 - Status: Acute Current Visit: Yes - Problem List Review Problem List Initiated/Reviewed/Updated: Yes - My Orders Last 24 Hours: My Active Orders 02/24/18 12:53 DRUG SCREEN, URINE [URCHEM] Routine UA W/MICROSCOPIC [URIN] Routine 02/24/18 13:19 AMNISURE RUPTURE MEMBRAN [BF] Routine 02/24/18 13:22 Ambulate [RC] PER UNIT ROUTINE Notify Provider Vital Signs [RC] PRN Up ad Ne [RC] ASDIRECTED Calcium Carbonate [Tums] 1,000 mg PO Q2H PRN Ondansetron [Zofran] 4 mg IV Q4H PRN Sodium Chloride 0.9% [Saline Flush] 10 ml FLUSH ASDIRECTED PRN DVT/VTE Prophylaxis Reflex [OM.PC] Routine Resuscitation Status Routine 02/24/18 13:23 Patient Status [ADT] Routine Communication Order [RC] ASDIRECTED Notify Provider [RC] PRN Vital Signs [RC] PER UNIT ROUTINE Saline Lock Insert [OM.PC] Routine 02/24/18 13:27 Epidural Catheter Management [OM.PC] Urgent 02/24/18 13:30 Insert Urinary Catheter [OM.PC] ASDIRECTED Oxytocin/Normal Saline [Pitocin in NS 20 Units/1,000 ML] 20 unit in 1,000 ml IV TITRATE 02/24/18 16:15 Lactated Ringers [Ringers, Lactated] 1,000 ml IV ASDIRECTED 02/24/18 16:25 UA W/MICROSCOPIC [URIN] Routine 02/24/18 18:47 Naloxone [Narcan] 0.1 mg IVPUSH Q5M PRN Ropivacaine [Naropin 0.2%] 100 ml EPIDUR ASDIRECTED diphenhydrAMINE [Benadryl] 25 mg IVPUSH Q6H PRN ePHEDrine [ePHEDrine Sulfate] 5 - 10 mg IV ASDIRECTED PRN 02/24/18 19:58 Patient Status [ADT] Routine Docusate Sodium [Colace] 100 mg PO BID PRN Ibuprofen [Motrin Bulk Bottle] 600 mg PO Q6H PRN Lanolin [Lansinoh HPA] 1 gm TOP ASDIRECTED PRN Witch Tonya [Tucks] 1 pad TOP ASDIRECTED PRN Assess Lochia [WOMSER] Per Unit Routine Assess Uterine Involution [WOMSER] Per Unit Routine Perineal Care [OM.PC] Per Unit Routine 02/24/18 Lunch Regular Diet [DIET] 02/25/18 07:14 Acetaminophen [Tylenol Bulk Bottle] 325 - 650 mg PO Q4H PRN - Assessment Assessment:: 02/24/2018 22 yo G2 now P2 at 38 4/7 gestational weeks without complications Labs-A positive, GBS negative, RPR nonreactive, Hep B neg, Hep C neg, HIV neg, Rubella [id number] 02/25/2018 Day One Fair Fundus firm and bleeding decreasing Voiding and passing gas Pain controlled with oral pain medications Hgb-9.4 today - Plan Plan:: 02/24/2018 22 yo at 38 4/7 gestational weeks here with SROM at home around 1130 SVE-4/70/-2 Amnisure positive FHTs category one Contractions irregular Plan- Admit to labor and delivery Monitor for active labor Start Pitocin per protocol Monitor FHTs Up and about as patient desires Pain management per patient request Plan and anticipate a vaginal delivery 02/24/2018 Routine care Encourage and support Plan discharge in 24-48 hours 02/25/2018 Continue routine cares Continue to encourage and support Plan discharge tomorrow
[2018-02-26 07:31] VITALS: BP 115/68
--- NOTE | 2018-02-26 17:17 | PCM.PNPP ---
- General Info Date of Service: 02/26/18 Functional Status: Reports: Pain Controlled - Review of Systems General: Reports: No Symptoms HEENT: Reports: No Symptoms Pulmonary: Reports: No Symptoms Cardiovascular: Reports: No Symptoms Gastrointestinal: Reports: No Symptoms Genitourinary: Reports: No Symptoms Musculoskeletal: Reports: No Symptoms Skin: Reports: No Symptoms Neurological: Reports: No Symptoms Psychiatric: Reports: No Symptoms - General Info Date of Service: 02/26/18 ( day two) - Patient Data Vital Signs - Most Recent: Last Vital Signs Temp 36.4 C 02/26/18 07:28 Pulse 83 02/26/18 07:28 Resp 16 02/26/18 07:28 BP 115/68 02/26/18 07:28 Pulse Ox 98 02/26/18 07:28 Weight - Most Recent: 117.48 kg Med Orders - Current: Current Medications Discontinued Medications Acetaminophen (Tylenol Bulk Bottle) 325 mg PO Q4H PRN PRN Reason: Pain Acetaminophen (Tylenol Bulk Bottle) 325 - 650 mg PO Q4H PRN PRN Reason: Pain Last Admin: 02/25/18 08:38 Dose: 1 bottle Calcium Carbonate/Glycine (Tums) 1,000 mg PO Q2H PRN PRN Reason: Indigestion Diphenhydramine HCl (Benadryl) 25 mg IVPUSH Q6H PRN PRN Reason: ITCHING Docusate Sodium (Colace) 100 mg PO BID PRN PRN Reason: Constipation Emollient Ointment (Lansinoh Hpa) 1 gm TOP ASDIRECTED PRN PRN Reason: Sore Nipples Last Admin: 02/25/18 08:37 Dose: 1 applic Ephedrine Sulfate (Ephedrine Sulfate) 5 mg IVPUSH ONETIME ONE Stop: 02/24/18 13:28 Last Admin: 02/24/18 22:31 Dose: Not Given Ephedrine Sulfate (Ephedrine Sulfate) Confirm Administered Dose 50 mg .ROUTE .STK-MED ONE Stop: 02/24/18 15:35 Last Admin: 02/24/18 16:01 Dose: Not Given Ephedrine Sulfate (Ephedrine Sulfate) 5 - 10 mg IV ASDIRECTED PRN PRN Reason: Systolic BP less than 100 Fentanyl (Sublimaze) 100 mcg IVPUSH Q1H PRN PRN Reason: Pain (moderate 4-6) Oxytocin/Sodium Chloride (Pitocin In Ns 20 Units/1,000 Ml) 20 unit in 1,000 mls @ 6 mls/hr IV TITRATE CYNTHIA; Protocol Last Titration: 02/24/18 18:02 Dose: 8 munits/min, 24 mls/hr Lactated Ringer's (Ringers, Lactated) 1,000 mls @ 999 mls/hr IV ONETIME ONE Stop: 02/24/18 14:27 Last Infusion: 02/24/18 14:45 Dose: 999 mls/hr Lactated Ringer's (Ringers, Lactated) 1,000 mls @ 125 mls/hr IV ASDIRECTED CYNTHIA Ropivacaine (Naropin 0.2%) Confirm Administered Dose 200 mls @ as directed .ROUTE .[facility]-MED ONE Stop: 02/24/18 16:49 Ropivacaine (Naropin 0.2%) 100 mls @ 0 mls/hr EPIDUR ASDIRECTED CYNTHIA; Protocol Oxytocin/Sodium Chloride (Pitocin In Ns 20 Units/1,000 Ml) 20 unit in 1,000 mls @ 2,997 mls/hr IV ONETIME ONE; Protocol Stop: 02/24/18 19:32 Last Admin: 02/24/18 20:31 Dose: 999 munits/min, 2,997 mls/hr Ibuprofen (Motrin Bulk Bottle) 600 mg PO Q6H PRN PRN Reason: Pain Last Admin: 02/25/18 08:38 Dose: 1 bottle Naloxone HCl (Narcan) 0.1 mg IVPUSH Q5M PRN PRN Reason: IF RESP RATE LESS THAN 6 Ondansetron HCl (Zofran) 4 mg IV Q4H PRN PRN Reason: Nausea/Vomiting Sodium Chloride (Saline Flush) 10 ml FLUSH ASDIRECTED PRN PRN Reason: Keep Vein Open Witch Tonya (Tucks) 1 pad TOP ASDIRECTED PRN PRN Reason: Hemorrhoids Last Admin: 02/25/18 08:37 Dose: 1 pad - Infant Interaction Disposition, : [place] at Bedside Infant Interaction: Holding Infant Feeding: Attempted ; Nursed Fair/Poor, Encouraged to Breastfeed Support Person: - Recovery Exam Fundal Tone: Firm Fundal Level: 2 Fingerbreadths Below Umbilicus Fundal Placement: Midline Lochia Amount: Small Lochia Color: Rubra/Red Perineum Description: Intact, Minimal Bruising/Swelling Episiotomy/Laceration: None Bladder Status: Voiding Urinary Elimination: Voided - Exam General: Alert, Oriented HEENT: Pupils Equal Neck: Supple Lungs: Clear to Auscultation, Normal Respiratory Effort Cardiovascular: Regular Rate, Regular Rhythm GI/Abdominal Exam: Normal Bowel Sounds, Soft, Non-Tender, No Organomegaly, No Distention, No Abnormal Bruit, No Mass, Pelvis Stable Extremities: Normal Inspection, Normal Range of Motion, Non-Tender, No Pedal Edema, Normal Capillary Refill Skin: Warm, Dry, Intact Neurological: No New Focal Deficit Psy/Mental Status: Alert, Normal Affect, Normal Mood - Problem List & Annotations (1) SNOMED Code(s): 89887060 Code(s): Z34.90 - ENCNTR FOR SUPRVSN OF NORMAL , UNSP, UNSP TRIMESTER Status: Acute Qualifiers: Weeks of gestation: 38 weeks Qualified Code(s): Z3A.38 - 38 weeks gestation of (2) Spontaneous rupture of amniotic membranes SNOMED Code(s): 734306704 Code(s): WUD2603 - Status: Acute (3) Active labor at term SNOMED Code(s): 96222497 Code(s): VZW7039 - Status: Acute - Problem List Review Problem List Initiated/Reviewed/Updated: Yes - My Orders Last 24 Hours: My Active Orders 02/26/18 09:32 Ready for Discharge [RC] PER UNIT ROUTINE - Assessment Assessment:: 02/24/2018 22 yo G2 now P2 at 38 4/7 gestational weeks without complications Labs-A positive, GBS negative, RPR nonreactive, Hep B neg, Hep C neg, HIV neg, Rubella [id number]-[id number] 02/25/2018 Day One Fair Fundus firm and bleeding decreasing Voiding and passing gas Pain controlled with oral pain medications Hgb-9.4 today 02/26/2018 Day Two Good Fundus firm and bleeding decreasing Home today - Plan Plan:: 02/24/2018 22 yo at 38 4/7 gestational weeks here with SROM at home around 1130 SVE-/-2 Amnisure positive FHTs category one Contractions irregular Plan- Admit to labor and delivery Monitor for active labor Start Pitocin per protocol Monitor FHTs Up and about as patient desires Pain management per patient request Plan and anticipate a vaginal delivery 02/24/2018 Routine care Encourage and support Plan discharge in 24-48 hours 02/25/2018 Continue routine cares Continue to encourage and support Plan discharge tomorrow 02/26/2018 Continue routine care Continue to encourage and support Discharge home today To see Farida in clinic in 6 weeks for visit
== END 2018-02-26 10:10 | disposition home or self-care (01) | DRG 775 ==
LOC: JP.OBCHECK 12:46 → JP.OB 13:23 → OBSVTOIN 19:32 → JP.MS 19:48
PROVIDERS: ADMIT Advanced Practice Midwife; ATTEND Advanced Practice Midwife
PROC: 10E0XZZ Delivery of Products of Conception, External Approach (ICD-10-PCS; principal; 2018-02-24)
DX: O42.02 Full-term premature rupture of membranes, onset of labor within 24 hours of rupture (principal); Z3A.38 38 weeks gestation of pregnancy; Z37.0 Single live birth
CPT/HCPCS: 36415; 51702; 59409; 80305-QW; 81001; 84112; 85025; 99211; A9270-GY; J2590; J2795; J7120